=== PATIENT | female | born 1960 | race African-American/Black ===

== ENCOUNTER 2018-07-07 20:44 | Inpatient (IN) ==
[2018-07-07] MEDS ORDERED: SODIUM CHLORIDE 0.9% 1,000 ML IV STA (21:23)
[2018-07-07] MEDS ORDERED: ALBUTEROL/IPRATROPIUM 3 ML NEB RESP TX STA (21:23)
[2018-07-07] MEDS ORDERED: ACETAMINOPHEN 500 MG TABLET PO STA (21:25)
[2018-07-07 21:29] LABS: Basophils % 0.1 % (0.0-0.8); Eosinophils % 0.1 % (0.00-10.9); Hematocrit 34.6 VOL% (35.7-47.0); Hemoglobin 11.1 GM/DL (12.0-16.0); Immature Granulocytes % 0.7 %; Immature Granulocytes Absolute 0.11 #; Lymphocytes # 1.2 10*3/uL (1.4-4.0); Lymphocytes % 7.2 % (21.3-54.2); Mean Corpuscular HGB Conc 32.1 GM/DL (32-36); Mean Corpuscular Hemoglobin 27 PG (27-34); Mean Corpuscular Volume 82.6 FL (87-102); Mean Platelet Volume 10.2 FL (9.6-12.0); Monocytes # 0.7 10*3/uL (0.11-0.8); NRBC # 0.02 10*3/uL; Neutrophils # 14.2 10*3/uL (1.4-7.4); Neutrophils % 87.9 % (38.7-73.9); Platelet Count 219 T/CUMM (130-400); Red Blood Count 4.19 MC/CUMM (3.8-5.5); Red Cell Distribution Width 15.2 % (9.3-17.3); White Blood Count 16.2 T/CUMM (4-12)
[2018-07-07 21:41] LABS: PT Patient Result 11.3 SECS
[2018-07-07 22:01] LABS: Bilirubin,Total 1.2 MG/DL (0.2-1.0); Calcium 8.3 MG/DL (8.5-10.1); Osmolality,Calculated 271.4 MOS/KG (273-304); Potassium 3.4 MMOL/L (3.5-5.1); Total Protein 11.8 G/DL (6.4-8.3)
[2018-07-07] MEDS ORDERED: FUROSEMIDE 40 MG/4 ML VIAL IV STA (22:14)
[2018-07-07] MEDS ORDERED: POTASSIUM BICARB EFFERVESCENT 25 MEQ TABLET PO ONE (22:14)
[2018-07-07] MEDS ORDERED: LEVOFLOXACIN INJ 500 MG in PREMIX 1 EACH IV STA (22:26)
[2018-07-07] MEDS ORDERED: guaiFENesin/DM ER 600-30 MG TABLET PO PRN (23:07)
[2018-07-07] MEDS ORDERED: GLUCAGON 1 MG VIAL IM PRN (23:07)
[2018-07-07] MEDS ORDERED: DEXTROSE 50% 25 GM/50 ML VIAL IV PRN (23:07)
[2018-07-07] MEDS ORDERED: hydrALAZINE 20 MG/1 ML VIAL IV PRN (23:11)
[2018-07-07 23:22] LABS: Apearance,Urine CLEAR (Clear); Bacteria,Urine Occasional /HPF (Few); Bilirubin,Urine Negative (Negative); Blood, Urine Small mg/dL (Negative); Glucose,Urine (UA) Negative (Negative); Ketones,Urine Negative (Negative); Mucus,Urine Occasional /LPF (Occasional); Nitrite,Urine Negative (Negative); Protein,Urine Negative; RBC,Urine 5 /HPF (0-4); Squamous Epithelial Cell,Urine Occasional /HPF (0-10); Urine Color Straw (Yellow); Urine Specific Gravity 1.009 (1.001-1.035); Urine Urobilinogen < 2.0 EU/DL (0.2-1.0); WBC,Urine 1 /HPF (0-6)
[2018-07-08] MEDS: INSULIN LISPRO 100 UNIT/ML SUBCUT SCH ×5 (02:20→23:12)
[2018-07-08 02:35] LABS: Basophils % 0.1 % (0.0-0.8); Hematocrit 35.1 VOL% (35.7-47.0); Hemoglobin 11.2 GM/DL (12.0-16.0); Immature Granulocytes % 0.5 %; Lymphocytes # 1.9 10*3/uL (1.4-4.0); Lymphocytes % 9.5 % (21.3-54.2); Mean Corpuscular HGB Conc 31.9 GM/DL (32-36); Mean Corpuscular Hemoglobin 26 PG (27-34); Mean Corpuscular Volume 82.6 FL (87-102); Mean Platelet Volume 10.1 FL (9.6-12.0); Monocytes # 0.9 10*3/uL (0.11-0.8); Monocytes % 4.7 % (1.7-12.7); Neutrophils # 16.9 10*3/uL (1.4-7.4); Neutrophils % 85.2 % (38.7-73.9); Platelet Count 221 T/CUMM (130-400); Red Blood Count 4.25 MC/CUMM (3.8-5.5); Red Cell Distribution Width 15.4 % (9.3-17.3); White Blood Count 19.8 T/CUMM (4-12)
[2018-07-08 03:06] LABS: Albumin 2.9 G/DL (3.4-5.0); Calcium 8.3 MG/DL (8.5-10.1); Osmolality,Calculated 268.4 MOS/KG (273-304); Potassium 3.7 MMOL/L (3.5-5.1); Total Protein 12.6 G/DL (6.4-8.3)
[2018-07-08] MEDS: ALBUTEROL/IPRATROPIUM 3 ML NEB RESP TX SCH ×5 (03:33→20:40)
[2018-07-08] MEDS: PANTOPRAZOLE 40 MG TABLET PO SCH (09:40)
[2018-07-08] MEDS: ENOXAPARIN 40 MG/0.4 ML SYRINGE SUBCUT SCH (10:09)
[2018-07-08] MEDS: LEVOFLOXACIN INJ 500 MG in PREMIX 1 EACH IV SCH (23:06)
[2018-07-08] MEDS: ACETAMINOPHEN 325 MG TABLET PO PRN (23:55)
[2018-07-09] MEDS: ALBUTEROL/IPRATROPIUM 3 ML NEB RESP TX SCH ×7 (01:16→23:47)
[2018-07-09] MEDS: INSULIN LISPRO 100 UNIT/ML SUBCUT SCH ×4 (05:37→23:58)
[2018-07-09 06:07] LABS: Calcium 8.1 MG/DL (8.5-10.1)
[2018-07-09] MEDS: POTASSIUM CHLORIDE 20 MEQ TABLET PO SCH ×4 (07:15→18:22)
[2018-07-09 08:16] LABS: Albumin (SPE) 3.5 G/DL (3.2-5.3); Total Protein (Chem) 11.2 G/DL (6.4-8.3)
[2018-07-09 08:17] LABS: Alpha 1 (SPE) 0.3 G/DL (0.1-0.4); Alpha 1 (SPE) Rel % 3.1 %; Alpha 2 (SPE) 0.9 G/DL (0.4-1.0); Alpha 2 (SPE) Rel % 8.4 %; Beta (SPE) 0.7 G/DL (0.5-1.1); Beta (SPE) Rel % 6.5 %; Gamma (SPE) 5.7 G/DL (0.7-1.7)
[2018-07-09] MEDS ORDERED: VANCOMYCIN INJ 1,000 MG in SODIUM CHLORIDE 0.9% 250 ML IV SCH (09:00)
[2018-07-09] MEDS ORDERED: VANCOMYCIN INJ 2,000 MG in SODIUM CHLORIDE 0.9% 500 ML IV ONE (09:30)
[2018-07-09] MEDS: ENOXAPARIN 40 MG/0.4 ML SYRINGE SUBCUT SCH (09:45)
[2018-07-09] MEDS: amLODIPine 10 MG TABLET PO SCH (09:46)
[2018-07-09] MEDS: ACETAMINOPHEN 325 MG TABLET PO PRN ×2 (09:46→21:22)
[2018-07-09] MEDS: PANTOPRAZOLE 40 MG TABLET PO SCH (09:46)
[2018-07-09] MEDS: MAGNESIUM CHLORIDE 64 MG TABLET PO SCH (09:46)
[2018-07-09] MEDS ORDERED: diphenhydrAMINE CAP 25 MG CAPSULE PO PRN (11:05)
[2018-07-09] MEDS: BENZONATATE 100 MG CAPSULE PO SCH (20:45)
[2018-07-09] MEDS: VANCOMYCIN INJ 1,500 MG in SODIUM CHLORIDE 0.9% 500 ML IV SCH (21:15)
[2018-07-10] MEDS: LEVOFLOXACIN INJ 500 MG in PREMIX 1 EACH IV SCH (01:47)
[2018-07-10] MEDS: ALBUTEROL/IPRATROPIUM 3 ML NEB RESP TX SCH ×5 (03:27→19:26)
[2018-07-10 05:55] LABS: Basophils % 0.1 % (0.0-0.8); Eosinophils # 0.2 10*3/uL (0.0-0.87); Eosinophils % 2.4 % (0.00-10.9); Hematocrit 33.6 VOL% (35.7-47.0); Hemoglobin 10.4 GM/DL (12.0-16.0); Immature Granulocytes % 0.4 %; Immature Granulocytes Absolute 0.03 #; Lymphocytes # 1.3 10*3/uL (1.4-4.0); Mean Corpuscular Hemoglobin 26 PG (27-34); Mean Platelet Volume 11.5 FL (9.6-12.0); Monocytes # 0.4 10*3/uL (0.11-0.8); Monocytes % 4.7 % (1.7-12.7); Neutrophils % 76.4 % (38.7-73.9); Platelet Count 180 T/CUMM (130-400); Red Blood Count 4.05 MC/CUMM (3.8-5.5); Red Cell Distribution Width 15.4 % (9.3-17.3); White Blood Count 7.8 T/CUMM (4-12)
[2018-07-10] MEDS: INSULIN LISPRO 100 UNIT/ML SUBCUT SCH ×3 (06:10→18:54)
[2018-07-10 06:11] LABS: Calcium 8.2 MG/DL (8.5-10.1); Osmolality,Calculated 268.2 MOS/KG (273-304); Potassium 3.9 MMOL/L (3.5-5.1)
[2018-07-10] MEDS: amLODIPine 10 MG TABLET PO SCH (08:28)
[2018-07-10] MEDS: ENOXAPARIN 40 MG/0.4 ML SYRINGE SUBCUT SCH (08:28)
[2018-07-10] MEDS: BENZONATATE 100 MG CAPSULE PO SCH ×3 (08:28→20:40)
[2018-07-10] MEDS: PANTOPRAZOLE 40 MG TABLET PO SCH (08:29)
[2018-07-10] MEDS: MAGNESIUM CHLORIDE 64 MG TABLET PO SCH (08:29)
[2018-07-10] MEDS: ACETAMINOPHEN 325 MG TABLET PO PRN ×2 (08:31→20:40)
[2018-07-10] MEDS ORDERED: ATENOLOL 50 MG TABLET PO SCH (09:00)
[2018-07-10] MEDS ORDERED: BENZONATATE 100 MG CAPSULE PO PRN (09:25)
[2018-07-10] MEDS: VANCOMYCIN INJ 1,500 MG in SODIUM CHLORIDE 0.9% 500 ML IV SCH (10:30)
[2018-07-10] MEDS: cefTRIAXone 2,000 MG in SYRINGE 1 EACH IV SCH (12:11)
[2018-07-10] MEDS: LEVOFLOXACIN INJ 750 MG in PREMIX 1 EACH IV SCH (12:14)
[2018-07-10] MEDS: DOXYCYCLINE HYCLATE 100 MG CAPSULE PO SCH (20:39)
[2018-07-11] MEDS: INSULIN LISPRO 100 UNIT/ML SUBCUT SCH ×4 (00:40→19:51)
[2018-07-11] MEDS: ALBUTEROL/IPRATROPIUM 3 ML NEB RESP TX SCH ×7 (00:42→22:38)
[2018-07-11] MEDS: ACETAMINOPHEN 325 MG TABLET PO PRN ×3 (00:48→20:51)
[2018-07-11 05:51] LABS: Basophils % 0.2 % (0.0-0.8); Eosinophils # 0.2 10*3/uL (0.0-0.87); Eosinophils % 4.5 % (0.00-10.9); Hematocrit 33.3 VOL% (35.7-47.0); Hemoglobin 10.4 GM/DL (12.0-16.0); Immature Granulocytes % 0.4 %; Immature Granulocytes Absolute 0.02 #; Lymphocytes # 1.2 10*3/uL (1.4-4.0); Lymphocytes % 22.1 % (21.3-54.2); Mean Corpuscular HGB Conc 31.2 GM/DL (32-36); Mean Corpuscular Hemoglobin 26 PG (27-34); Mean Corpuscular Volume 82.6 FL (87-102); Mean Platelet Volume 10.3 FL (9.6-12.0); Monocytes # 0.4 10*3/uL (0.11-0.8); Monocytes % 7.1 % (1.7-12.7); Neutrophils # 3.5 10*3/uL (1.4-7.4); Neutrophils % 65.7 % (38.7-73.9); Platelet Count 222 T/CUMM (130-400); Red Blood Count 4.03 MC/CUMM (3.8-5.5); Red Cell Distribution Width 15.2 % (9.3-17.3); White Blood Count 5.3 T/CUMM (4-12)
[2018-07-11 06:06] LABS: Calcium 8.4 MG/DL (8.5-10.1); Osmolality,Calculated 272.8 MOS/KG (273-304); Potassium 3.8 MMOL/L (3.5-5.1)
[2018-07-11] MEDS: ENOXAPARIN 40 MG/0.4 ML SYRINGE SUBCUT SCH (08:53)
[2018-07-11] MEDS: DOXYCYCLINE HYCLATE 100 MG CAPSULE PO SCH ×2 (08:53→20:44)
[2018-07-11] MEDS: MAGNESIUM CHLORIDE 64 MG TABLET PO SCH (08:53)
[2018-07-11] MEDS: amLODIPine 10 MG TABLET PO SCH (08:54)
[2018-07-11] MEDS: BENZONATATE 100 MG CAPSULE PO SCH ×3 (08:54→20:44)
[2018-07-11] MEDS: ATENOLOL 50 MG TABLET PO SCH (08:54)
[2018-07-11] MEDS: PANTOPRAZOLE 40 MG TABLET PO SCH (08:54)
[2018-07-11] MEDS: POTASSIUM CHLORIDE 20 MEQ TABLET PO SCH (08:54)
[2018-07-11] MEDS ORDERED: LEVOFLOXACIN 500 MG TABLET PO SCH (09:00)
[2018-07-11] MEDS: LISINOPRIL 5 MG TABLET PO SCH (09:02)
[2018-07-11] MEDS: cefTRIAXone 2,000 MG in SYRINGE 1 EACH IV SCH (11:56)
[2018-07-11] MEDS: LEVOFLOXACIN INJ 750 MG in PREMIX 1 EACH IV SCH (11:57)
[2018-07-12] MEDS: INSULIN LISPRO 100 UNIT/ML SUBCUT SCH ×2 (00:30→06:32)
[2018-07-12] MEDS: ALBUTEROL/IPRATROPIUM 3 ML NEB RESP TX SCH ×2 (02:53→08:14)
[2018-07-12 05:28] LABS: Basophils % 0.2 % (0.0-0.8); Eosinophils # 0.2 10*3/uL (0.0-0.87); Eosinophils % 3.6 % (0.00-10.9); Hematocrit 33.2 VOL% (35.7-47.0); Hemoglobin 10.3 GM/DL (12.0-16.0); Immature Granulocytes % 0.3 %; Immature Granulocytes Absolute 0.02 #; Lymphocytes % 33.2 % (21.3-54.2); Mean Corpuscular Hemoglobin 26 PG (27-34); Mean Corpuscular Volume 82.8 FL (87-102); Mean Platelet Volume 10.5 FL (9.6-12.0); Monocytes # 0.5 10*3/uL (0.11-0.8); Monocytes % 8.8 % (1.7-12.7); Neutrophils # 3.2 10*3/uL (1.4-7.4); Neutrophils % 53.9 % (38.7-73.9); Platelet Count 232 T/CUMM (130-400); Red Blood Count 4.01 MC/CUMM (3.8-5.5); Red Cell Distribution Width 15.1 % (9.3-17.3); White Blood Count 5.9 T/CUMM (4-12)
[2018-07-12 05:51] LABS: Hypochromasia 1+; Platelet Estimate Adequate
[2018-07-12] MEDS: ACETAMINOPHEN 325 MG TABLET PO PRN (06:14)
[2018-07-12 08:20] VITALS: BP 150/82
[2018-07-12] MEDS: amLODIPine 10 MG TABLET PO SCH (08:21)
[2018-07-12] MEDS: BENZONATATE 100 MG CAPSULE PO SCH (08:21)
[2018-07-12] MEDS: MAGNESIUM CHLORIDE 64 MG TABLET PO SCH (08:21)
[2018-07-12] MEDS: ATENOLOL 50 MG TABLET PO SCH (08:22)
[2018-07-12] MEDS: PANTOPRAZOLE 40 MG TABLET PO SCH (08:22)
[2018-07-12] MEDS: DOXYCYCLINE HYCLATE 100 MG CAPSULE PO SCH (08:22)
[2018-07-12] MEDS: LISINOPRIL 5 MG TABLET PO SCH (08:22)
[2018-07-12] MEDS: POTASSIUM CHLORIDE 20 MEQ TABLET PO SCH (08:22)
[2018-07-12] MEDS: ENOXAPARIN 40 MG/0.4 ML SYRINGE SUBCUT SCH (08:22)
== END 2018-07-12 10:50 | disposition home or self-care (01) | DRG 871 ==
LOC: N.ED 20:44 → SUATTDRO 23:07 → N.EDINP 07-08 00:05 → N.5E 07-08 00:11
PROVIDERS: ADMIT Internal Medicine; ATTEND Internal Medicine